=== PATIENT | female | born 1955 | race Native Hawaiian/Other Pacific Islander ===

== ENCOUNTER 2018-09-19 15:44 | Outpatient (CLI) | payer OTHER ==
[2018-09-19 16:10] LABS: PLATELET COUNT 135 K/uL (152-353)
[2018-09-19 16:44] LABS: POTASSIUM 4.3 mmol/L (3.6-5.2)
== END 2018-09-19 19:17 | disposition home or self-care (01) ==
LOC: LABW 15:44
PROVIDERS: Nurse Practitioner Family
DX: M75.82 Other shoulder lesions, left shoulder (principal); R79.89 Other specified abnormal findings of blood chemistry
CPT/HCPCS: 36415; 80053; 85027; 86304; 86316